=== PATIENT | female | born 1990 | race Caucasian/White ===

== ENCOUNTER 2021-05-24 01:34 | Outpatient (CLI) | payer MEDICARE, MEDICAID, SELFPAY ==
[2021-05-24 15:20] LABS: Abs Immature Grans 0.04 10^3/uL (0.0-0.06); Absolute Basophil Count 0.06 10^3/uL (0.0-0.2); Absolute Eosinophil Count 0.22 10^3/uL (0.0-0.7); Absolute Monocyte Count 0.77 10^3/uL (0.1-0.8); Basophils % 0.5; Eosinophils % 1.8; HGB 12.9 g/dL (11.2-15.7); Immature Grans % 0.3; Lymphocytes % 26.4; MCH 29.9 pg (27.0-33.0); MCHC 33.1 % (32.0-36.0); MCV 90.3 fL (80-95); MPV 9.5 fL (8.0-11.0); Monocytes % 6.4; Neutrophils % 64.6; Nucleated RBC 0 %; Platelet Count 307 10^3/uL (130-400); RBC 4.32 10^6/uL (3.93-5.22); RDW 12.5 % (11.7-14.6); RDW-SD 41.6 fL
[2021-05-24 15:23] LABS: Absolute Lymphocyte Count 3.19 10^3/uL (1.2-3.4); Absolute Neutrophil Count 7.82 10^3/uL (1.2-6.7)
[2021-05-24 16:26] LABS: TSH (W/Ref FT4) 1.59 uIU/mL (0.36-3.74)
[2021-05-29 11:27] LABS: Hepatitis B Surface Ag Negative (Negative)
[2021-05-29 11:47] LABS: Varicella IgG Antibody Positive (See Note)
[2021-05-29 11:49] LABS: Rubella IgG Ab (UVM) Negative (See Note)
[2021-05-29 12:07] LABS: HIV-1/2 Ag & Ab Screen Negative (Negative)
[2021-05-29 12:13] LABS: Hepatitis C Ab w Rflx HCV PCR Negative (Negative)
[2021-05-29 13:03] LABS: Syphilis Total Ab w/Reflex Nonreactive (Nonreactive)
== END 2021-05-24 01:35 | disposition home or self-care (01) ==
LOC: LBO 01:34
PROVIDERS: PCP Nurse Practitioner Adult Health; Visit Provider Advanced Practice Midwife
DX: O99.341 Other mental disorders complicating pregnancy, first trimester; F31.9 Bipolar disorder, unspecified; Z11.4 Encounter for screening for human immunodeficiency virus [HIV]; Z11.59 Encounter for screening for other viral diseases; Z01.84 Encounter for antibody response examination; Z3A.11 11 weeks gestation of pregnancy
CPT/HCPCS: 36415; 86787; 86803; 86850; 86900; 86901; 87340; 87389; 84443; 85025; 86762; 86780

== ENCOUNTER 2021-05-24 16:46 | Outpatient (REF) | payer MEDICARE, MEDICAID, SELFPAY ==
[2021-05-24 17:49] LABS: *AMPHETAMINES SCREEN URINE Negative (Negative); *BARBITURATES SCREEN URINE Negative (Negative); *BENZODIAZEPINES SCREEN URINE Negative (Negative); Cannabinoids THC Negative (Negative); Cocaine Screen,Urine Negative (Negative); METHADONE URINE SCREEN Negative (Negative); OPIATES URINE SCREEN Negative (Negative)
[2021-05-24 17:54] LABS: Tricyclic Antidepressants Negative (Negative)
[2021-05-31 06:18] LABS: Buprenorphine Negative ng/mL (Cutoff: 5.0)
== END 2021-05-24 16:47 | disposition home or self-care (01) ==
LOC: LBN 16:46
PROVIDERS: PCP Nurse Practitioner Adult Health; Visit Provider Advanced Practice Midwife
DX: O99.321 Drug use complicating pregnancy, first trimester; R30.0 Dysuria; F19.20 Other psychoactive substance dependence, uncomplicated
CPT/HCPCS: 80307; 87086

== ENCOUNTER 2021-06-20 16:12 | Outpatient (REF) | payer MEDICARE, MEDICAID, SELFPAY ==
[2021-06-24 15:23] LABS: Chlamydia Result Negative (Negative); GC Result Negative (Negative)
== END 2021-06-20 16:13 | disposition home or self-care (01) ==
LOC: LBN 16:12
PROVIDERS: PCP Nurse Practitioner Adult Health; Visit Provider Advanced Practice Midwife
DX: Z34.92 Encounter for supervision of normal pregnancy, unspecified, second trimester (principal); Z11.3 Encounter for screening for infections with a predominantly sexual mode of transmission; Z3A.15 15 weeks gestation of pregnancy
CPT/HCPCS: 87491; 87591

== ENCOUNTER 2021-07-09 03:39 | Outpatient (CLI) | payer MEDICARE, MEDICAID, SELFPAY ==
[2021-07-12 10:47] LABS: AFP 54.4 ng/mL; Calculated age at EDD 29 years; GA used in risk estimate Dates estimate; INHIBIN 178 pg/mL; IVF Pregnancy No; Initial or repeat testing Initial testing; Insulin dependent diabetes No; Maternal Weight 187 lbs; Number of Fetuses 1; Physician Phone Number 802-748-7300; Prev Down(T21)/Trisomy Pregnan No; Prev Pregnancy w/NTD No; RECOMMENDED FOLLOW UP None.; Results Summary Normal risk; hCG, TOTAL 10.1 IU/mL; uE3 1.52 ng/mL
== END 2021-07-09 03:40 | disposition home or self-care (01) ==
LOC: LBO 03:39
PROVIDERS: PCP Nurse Practitioner Adult Health; Visit Provider Advanced Practice Midwife
DX: Z34.92 Encounter for supervision of normal pregnancy, unspecified, second trimester (principal); Z36.89 Encounter for other specified antenatal screening; Z3A.18 18 weeks gestation of pregnancy
CPT/HCPCS: 36415; 81511

== ENCOUNTER 2021-09-03 17:15 | Outpatient (REF) | payer MEDICARE, MEDICAID, SELFPAY | END 2021-09-03 17:16 | disposition home or self-care (01) | LOC: LBN 17:15 | PROVIDERS: PCP Nurse Practitioner Adult Health; Visit Provider Advanced Practice Midwife | DX: R30.0 Dysuria (principal) | CPT/HCPCS: 87086 ==

== ENCOUNTER 2021-09-26 11:43 | Emergency (ER) | payer MEDICARE, MEDICAID, SELFPAY ==
[2021-09-26 11:53] VITALS: BP 134/67; PULSE 93; RESP 16; TEMP 37.4; O2SAT 97
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
[2021-09-26 12:20] LABS: Source Nasal/Nares
[2021-09-26 13:15] LABS: COVID-19 PCR Negative (Negative)
[2021-09-26] MEDS: Acetaminophen 325 MG TAB 650 MG PO (13:21)
[2021-09-26] MEDS: Amoxicillin 875/Clav. 125 TAB PO (13:21)
[2021-09-26] MEDS: Dexamethasone 10 MG/ML VIAL PO (13:21)
== END 2021-09-26 13:40 | disposition short-term general hospital (02) ==
PROVIDERS: Emergency Provider Physician Assistant; PCP Nurse Practitioner Adult Health
DX: O26.893 Other specified pregnancy related conditions, third trimester (principal); J01.80 Other acute sinusitis; O36.8190 Decreased fetal movements, unspecified trimester, not applicable or unspecified; Z3A.29 29 weeks gestation of pregnancy
CPT/HCPCS: 87449; 87635; 87880; 99283; 59025; 87081; J1100

== ENCOUNTER 2021-09-26 13:21 | Outpatient (CLI) | payer MEDICARE, MEDICAID, SELFPAY ==
[2021-09-26 13:37] VITALS: BP 110/56; PULSE 76; TEMP 36.9
[2021-09-26 14:30] VITALS: BP 110/56; PULSE 76
--- NOTE | 2021-09-26 14:38 | W.OBNST ---
Date of service: 09/26/21 Time of Service: 14:30 NST Evaluation Reason for NST Reasons for Nonstress Test: DECREASED MOVEMENT Gestational Age Gestational Age in Weeks and Days: 81 Weeks and 5Days Test and Monitor Explained Test/Monitor Explained: Test Explained, Monitor Explained and Patient Verbalized Understanding Vital Signs Blood Pressure: 110/56 Pulse: 76 Temperature: 98.4 F NST Information Date on Monitor: 09/26/21 Time on Monitor: 13:49 Date off Monitor: 09/26/21 Time off Monitor: 14:28 Total Time on Monitor: 39 NST Interventions: PO Hydration NST Evaluation Patient States Movement: Present FHR Baseline: 140 Variability: Moderate 6-25 bpm Accelerations: 15x15 Decelerations: None NST Results: Reactive Note NST Note Note: NST is reactive and reassuring. Patient was seen in ED for upper respiratory illness without fever, had flu and covid testing done and was negative and cleared by ED physician but had reported some decrease in movement. NST shows movement and is reassuring. Patient will keep her next visit as scheduled. CARMEN NST Reviewed and Verified by: Chandrika Willson
[2021-09-26 14:40] VITALS: BP 110/56; PULSE 76; TEMP 36.9
[2021-09-26 15:11] VITALS: BP 110/56; PULSE 76; TEMP 36.9
--- NOTE | 2021-09-26 15:11 | W.OBNST ---
Date of service: 09/26/21 Time of Service: 15:11 NST Evaluation Reason for NST Reasons for Nonstress Test: DECREASED MOVEMENT Gestational Age Gestational Age in Weeks and Days: 81 Weeks and 5Days Test and Monitor Explained Test/Monitor Explained: Test Explained, Monitor Explained and Patient Verbalized Understanding Vital Signs Blood Pressure: 110/56 Pulse: 76 Temperature: 98.4 F NST Information Date on Monitor: 09/26/21 Time on Monitor: 13:49 Date off Monitor: 09/26/21 Time off Monitor: 14:28 Total Time on Monitor: 39 NST Interventions: PO Hydration NST Evaluation Patient States Movement: Present FHR Baseline: 140 Variability: Moderate 6-25 bpm Accelerations: 15x15 Decelerations: None NST Results: Reactive Note NST Note NST Reviewed and Verified by: Mere Castanon
[2021-09-27 08:33] VITALS: BP 120/66; PULSE 80
[2021-09-27 13:54] VITALS: BP 170/96; PULSE 75
[2021-09-27 14:13] VITALS: BP 149/109; PULSE 82
[2021-09-27 16:29] VITALS: BP 135/81; PULSE 80
== END 2021-09-26 15:00 | disposition home or self-care (01) ==
LOC: BCD 13:22 → OBS 13:48
PROVIDERS: PCP Nurse Practitioner Adult Health; Visit Provider Advanced Practice Midwife
DX: O36.8130 Decreased fetal movements, third trimester, not applicable or unspecified (principal); Z3A.31 31 weeks gestation of pregnancy
CPT/HCPCS: 59025

== ENCOUNTER 2021-10-02 02:32 | Outpatient (CLI) | payer MEDICARE, MEDICAID, SELFPAY ==
[2021-10-02 10:33] LABS: HCT 39.5 % (36.0-46.0); HGB 13.1 g/dL (11.2-15.7); MCH 30.4 pg (27.0-33.0); MCHC 33.2 % (32.0-36.0); MCV 91.6 fL (80-95); MPV 9.4 fL (8.0-11.0); Platelet Count 294 10^3/uL (130-400); RBC 4.31 10^6/uL (3.93-5.22); RDW 12.5 % (11.7-14.6); RDW-SD 41.8 fL; WBC 15.98 10^3/uL (4.4-10.8)
[2021-10-02 10:49] LABS: Glucose,1 Hr (Glucola) 97 mg/dL (80-140)
== END 2021-10-02 02:33 | disposition home or self-care (01) ==
LOC: LBO 02:32
PROVIDERS: PCP Nurse Practitioner Adult Health; Visit Provider Advanced Practice Midwife
DX: Z34.93 Encounter for supervision of normal pregnancy, unspecified, third trimester (principal)
CPT/HCPCS: 36415; 82950; 85027; 86850; 90384

== ENCOUNTER 2021-10-03 14:51 | Outpatient (REF) | payer MEDICARE, MEDICAID, SELFPAY ==
[2021-10-04 02:08] LABS: *AMPHETAMINES SCREEN URINE Negative (Negative); *BARBITURATES SCREEN URINE Negative (Negative); *BENZODIAZEPINES SCREEN URINE Negative (Negative); Cannabinoids THC Negative (Negative); Cocaine Screen,Urine Negative (Negative); METHADONE URINE SCREEN Negative (Negative); OPIATES URINE SCREEN Negative (Negative); Tricyclic Antidepressants Negative (Negative)
[2021-10-09 14:17] LABS: Buprenorphine Negative ng/mL (Cutoff: 5.0)
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
== END 2021-10-03 14:52 | disposition home or self-care (01) ==
LOC: NCHCN 14:51
PROVIDERS: PCP Nurse Practitioner Adult Health; Visit Provider Advanced Practice Midwife
DX: O15.03 Eclampsia complicating pregnancy, third trimester
CPT/HCPCS: 80307

== ENCOUNTER 2021-10-15 00:42 | Outpatient (CLI) | payer MEDICARE, MEDICAID, SELFPAY ==
--- NOTE | 2021-10-15 07:15 | DI.US_ITS ---
Exam(s) US OB RAS WEIGHT EXAM: US OB RAS WEIGHT CLINICAL HISTORY: ,high risk,medication exposure,O09.891 TECHNIQUE: Ultrasound performed using standard protocol. COMPARISON: No exams were available for comparison FINDINGS: Ob ultrasound was performed utilizing 3rd trimester protocol. biometry is consistent with a ge stational age of 32 weeks 2 days and EDC of December 08. The estimated weight is 1911 grams which is at the 35th percentile for predicted gestational ag e. Placenta is posterior with no placenta previa. There is normal quantity of amniotic fluid and the AF I is 19. Fetus is in breech presentation. heart rate is 141 BPM. IMPRESSION: DATA REPOSITORY:
== END 2021-10-15 01:02 ==
PROVIDERS: PCP Nurse Practitioner Adult Health; Visit Provider Advanced Practice Midwife
DX: O09.893 Supervision of other high risk pregnancies, third trimester (principal)
CPT/HCPCS: 76816

== ENCOUNTER 2021-10-28 19:23 | Outpatient (REF) | payer MEDICARE, MEDICAID, SELFPAY ==
[2021-10-28 19:06] LABS: *AMPHETAMINES SCREEN URINE Negative (Negative); *BARBITURATES SCREEN URINE Negative (Negative); *BENZODIAZEPINES SCREEN URINE Negative (Negative); Cannabinoids THC Positive (Negative); Cocaine Screen,Urine Negative (Negative); METHADONE URINE SCREEN Negative (Negative); OPIATES URINE SCREEN Negative (Negative)
[2021-10-28 19:24] LABS: Tricyclic Antidepressants Negative (Negative)
[2021-11-05 16:40] LABS: Buprenorphine Negative ng/mL (Cutoff: 5.0)
== END 2021-10-28 19:24 | disposition home or self-care (01) ==
LOC: LBN 19:23
PROVIDERS: PCP Nurse Practitioner Adult Health; Visit Provider Advanced Practice Midwife
DX: F12.90 Cannabis use, unspecified, uncomplicated (principal); R56.9 Unspecified convulsions; Z34.93 Encounter for supervision of normal pregnancy, unspecified, third trimester
CPT/HCPCS: 80307

== ENCOUNTER 2021-11-08 16:32 | Outpatient (REF) | payer MEDICARE, MEDICAID, SELFPAY ==
[2021-11-08 16:58] LABS: *AMPHETAMINES SCREEN URINE Negative (Negative); *BARBITURATES SCREEN URINE Negative (Negative); *BENZODIAZEPINES SCREEN URINE Negative (Negative); Cannabinoids THC Negative (Negative); Cocaine Screen,Urine Negative (Negative); METHADONE URINE SCREEN Negative (Negative); OPIATES URINE SCREEN Negative (Negative)
[2021-11-08 16:59] LABS: Tricyclic Antidepressants Negative (Negative)
[2021-11-15 12:21] LABS: Buprenorphine Negative ng/mL (Cutoff: 5.0); Norbuprenorphine Negative ng/mL (Cutoff: 2.5)
== END 2021-11-08 16:33 | disposition home or self-care (01) ==
LOC: LBN 16:32
PROVIDERS: PCP Nurse Practitioner Adult Health; Visit Provider Advanced Practice Midwife
DX: R56.9 Unspecified convulsions (principal); Z34.93 Encounter for supervision of normal pregnancy, unspecified, third trimester
CPT/HCPCS: 80307; 87081

== ENCOUNTER 2021-11-11 09:13 | Outpatient (CLI) | payer MEDICARE, MEDICAID, SELFPAY ==
--- NOTE | 2021-11-11 08:45 | DI.US_ITS ---
Exam(s) US OB RAS WEIGHT EXAM: US OB RAS WEIGHT CLINICAL HISTORY: interval growth, size of fetus inconsistent with date, O26.843. TECHNIQUE: Transabdominal obstetrical ultrasound performed. COMPARISON: US US OB RAS WEIGHT from 10/15/2021 US US OB RAS WEIGHT from 10/15/2021 FINDINGS:: Number of fetuses: One. position: Vertex. Placental location: Posterior. No evidence of previa. BIOMETRIC DATA: BPD: 85mm = 34+1 weeks HC: 315mm = 35+2 weeks AC: 299mm = 33+ 6 weeks FL: 68 mm = 34+ 6 weeks EFW: 2403 Gms = 14 % Composite Age: 34+4 weeks EDC: 19 December 2021 Heart Rate: 147BPM Amniotic fluid index: 13. 7 cm. Amount of fluid is within normal limits. IMPRESSION: size and weight is at the lower range of normal.. DATA REPOSITORY:
== END 2021-11-11 09:33 ==
PROVIDERS: PCP Nurse Practitioner Adult Health; Visit Provider Advanced Practice Midwife
DX: O26.843 Uterine size-date discrepancy, third trimester (principal); Z3A.34 34 weeks gestation of pregnancy
CPT/HCPCS: 76816

== ENCOUNTER 2021-12-09 02:48 | Outpatient (CLI) | payer MEDICARE, MEDICAID, SELFPAY ==
[2021-12-09 03:30] VITALS: BP 137/78; PULSE 77; RESP 18; TEMP 36.7
[2021-12-09 03:35] VITALS: BP 137/78; PULSE 77; RESP 18; TEMP 36.8
[2021-12-09 03:54] VITALS: BP 137/78; PULSE 77; TEMP 36.8
--- NOTE | 2021-12-09 03:59 | W.OBNST ---
Date of service: 12/09/21 Time of Service: 03:59 NST Evaluation Reason for NST Reasons for Nonstress Test: OTHER, SEE COMMENT Reason for NST Other: lower abdominal pain Gestational Age Gestational Age in Weeks and Days: 40 Weeks and 1Days Test and Monitor Explained Test/Monitor Explained: Test Explained, Monitor Explained and Patient Verbalized Understanding Vital Signs Blood Pressure: 137/78 Pulse: 77 Temperature: 98.2 F NST Information Date on Monitor: 12/09/21 Time on Monitor: 03:17 Date off Monitor: 12/09/21 Time off Monitor: 03:48 Total Time on Monitor: 31 NST Interventions: PO Hydration NST Evaluation Patient States Movement: Present FHR Baseline: 130 Variability: Moderate 6-25 bpm Accelerations: 15x15 Decelerations: None NST Results: Reactive Note NST Note Note: Jenni presents for complaint of lower mid abdominal pain that is intermittent. Pain began at midnight. Denies LOF or show. Baby is active and pain appears to be most intense when baby is moving. Abdomen is soft and non tender to palpation. NST is reactive and CAT I reassuring. No contractions on toco reading or palpated. VE done /VTX -2 cervix is medium consistency and posterior. Patient is discharged to home and will return to office at 1400 today as scheduled for repeat assessment. She declines continued observation on Center. CARMEN NST Reviewed and Verified by: Chandrika Willson
[2021-12-09 04:01] VITALS: BP 137/78; PULSE 77; TEMP 36.8
[2021-12-09 13:09] VITALS: BP 140/74; PULSE 64
== END 2021-12-09 04:01 | disposition home or self-care (01) ==
LOC: BCD 14:50 → OBS 14:50
PROVIDERS: PCP Nurse Practitioner Adult Health; Visit Provider Advanced Practice Midwife
DX: O26.893 Other specified pregnancy related conditions, third trimester (principal); R10.2 Pelvic and perineal pain; Z3A.40 40 weeks gestation of pregnancy
CPT/HCPCS: 59025; J2001; J2250; J2405; J2704; J3010

== ENCOUNTER 2021-12-09 13:10 | Inpatient (IN) | payer MEDICARE, MEDICAID, SELFPAY ==
[2021-12-09] VITALS (44 sets, daily range): BP systolic 107–140; BP diastolic 50–92; PULSE 49–90; RESP 15–18; TEMP 36–36.8; O2SAT 90–100; BMI 30.4
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
[2021-12-09] MEDS: Lactated Ringers 1,000 ML 1000 ML IV (13:40)
--- NOTE | 2021-12-09 13:57 | W.PM.OBNL1 ---
Date of service: 12/09/21 Time of Service: 13:57 Informed Consent Informed Consent: Regional Anesthesia and Other (labor progression, pain management options.) Assessment and Plan Assessment and plan (1) Active labor at term: Status: Acute Assessment and plan: 1. will do full admission as nitrous is not helping patient manage her pain and epidural is required 2. expect NVD Objective Temp Pulse Resp BP 98.2 F 64 18 140/74 12/09/21 13:48 12/09/21 13:48 12/09/21 13:48 12/09/21 13:48 Vital Signs Reviewed: Yes Subjective Interval history since last seen: not enough relief with nitrous use, will admit and move toward epidural for pain management. Anesthesia is aware. KH Interventions Pain Management Interventions: Epidural and Nitrous Oxide , nitrous oxide use reviewed, patient admits to minimal relief. Requesting epidural. CARMEN .
--- NOTE | 2021-12-09 14:24 | W.ANESPRE ---
General Info Date of Service Date Performed: 12/09/21 Height: 5 ft 11 in Weight: 98.883 kg Body Mass Index (BMI): 30.4 Meds Allergies and Home Medications Allergies Allergy/AdvReac Type Severity Reaction Status Date / Time lamotrigine [From Lamictal] Allergy Severe full body Verified 12/09/21 13:18 rash latex Allergy Skin Rash Verified 12/09/21 13:18 seasonal Allergy Mild Uncoded 12/09/21 13:18 Home Medication Medication Instructions Recorded vitamins with calcium 1 tab PO DAILY #90 tab 05/03/21 no.72-iron 29 mg-folic acid 1 mg tablet bisacodyl 5 mg tablet,delayed 5 mg PO ONCE PRN 05/24/21 release secukinumab 150 mg/mL subcutaneous 150 mg SUBCUT .once/month ml 05/24/21 pen injector Current Visit Medications: Current Medications Generic Name Dose Route Start Last Admin Trade Name Freq PRN Reason Stop Dose Admin Sodium Chloride 500 mls @ 0 mls/hr 12/09/21 13:55 Saline 500ml Bag IV PRN PRN As Directed Ringer's Solution 1,000 mls @ 150 mls/hr 12/09/21 14:00 IV INFUSION DENAE IV Miscellaneous Supplies 1 each 12/09/21 14:00 Iv Access IV DIRECTED DENAE Sodium Chloride 0 ml 12/09/21 13:55 Normal Saline Flush 10 Ml Syr IVP PRN PRN PFSH Active Problems Active Problems: Problem Status Onset Code Active labor at term Prolonged latent phase of labor O63.0 Size of fetus inconsistent with dates in third trimester O26.843 34 weeks gestation of Z3A.34 Rh negative status during O26.899, Z67.91 Acute sinusitis J01.90 Decreased movement O36.8190 Third trimester Z34.93 Status post craniectomy Z98.890 History of pyelonephritis Z87.448 Seizures R56.9 Borderline personality disorder F60.3 Personal history of traumatic brain injury Z87.820 Posttraumatic stress disorder F43.10 Bipolar affective disorder F31.9 Psoriasis L40.9 Asthma J45.909 TMJ (temporomandibular joint disorder) M26.609 Migraine headache G43.909 Marijuana use F12.90 Dysuria R30.0 Medication exposure during first trimester of O09.891 Nicotine dependence F17.200 Rubella non-immune status, antepartum O99.891, Z28.3 History of cranioplasty Z98.890 Constipation K59.00 COOKIE positive R76.8 Z34.90 Tobacco Smoking/Tobacco Use Status: Current every day Alcohol Alcohol Intake: never Substance Use Substance use type: does not use Prental History History 2 Para 0 Hx # Term Pregnancies 0 Multiple births 0 Hx # Pregnancies 0 Ectopic pregnancies 0 AB induced 0 Hx Number of Living Children 0 AB spontaneous 1 Vital Signs and Lab Results Vital Signs Most Recent Vital Signs in EMR: Most Recent Vital Signs Temp Pulse Resp BP 36.8 C 64 18 140/74 12/09/21 13:48 12/09/21 13:48 12/09/21 13:48 12/09/21 13:48 Lab Results Result Diagrams: 12/09/21 13:55 Blood Type / Crossmatch: No Data to Display Complete Blood Count: No Data to Display Complete Metabolic Panel: No Data to Display Liver Function Panel: No Data to Display Coagulation Panel: No Data to Display Cardiac Panel: No Data to Display Arterial Blood Gas: No Data to Display Venous Blood Gas: No Data to Display Pancreas Panel: No Data to Display Thyroid Panel: No Data to Display Infectious Disease: No Data to Display Blood Cultures: No Data to Display Toxicology Panel: No Data to Display Panel: No Data to Display Anesthesia Assessment and Plan Anesthesia History Personal History: No History of Anesthesia Complications Family History: No Family History of Anesthesia Complications Exercise Tolerance Exercise Tolerance: Metabolic Equivalents>4 Pertinent Negatives Pertinent Negatives: No Symptoms of GERD, No Major Cardiovascular Symptoms or Complaints and No Major Pulmonary Symptoms or Complaints Cardiac & Pulmonary Exam Cardiac Exam: Normal S1/S2 Heart Sounds Pulmonary Exam: Clear Bilateral Breath Sounds Implantable Cardiac Device Does patient have a Pacemaker or an ICD?: No Airway Exam Known Difficult Airway: No Mallampati Class: 1 Mouth Opening: Normal (> 3cm) Thyromental Distance: Greater than 3 cm Neck Range of Motion: Full ROM Neck Circumference: Normal Teeth Condition: Normal Dentition ASA Classification ASA Score: ASA 2 Emergency Case?: No NPO Status NPO Status: Full Stomach Status Status: Confirmed Anesthesia Plan Resuscitation Status: Full Code Anesthesia Technique: Epidural Anesthesia Airway Planned: Natural Airway Monitors Used: Standard Monitors Preoperative Comments:: Previous tracheostomy, no history of GETA since TBI. Prior anesthesia consult reviewed. Current smoker.
[2021-12-09 14:32] LABS: HCT 43.4 % (36.0-46.0); HGB 14.4 g/dL (11.2-15.7); MCH 30.8 pg (27.0-33.0); MCHC 33.2 % (32.0-36.0); MCV 92.9 fL (80-95); Platelet Count 214 10^3/uL (130-400); RBC 4.67 10^6/uL (3.93-5.22); RDW 12.9 % (11.7-14.6); RDW-SD 43.6 fL; WBC 15.78 10^3/uL (4.4-10.8)
[2021-12-09] MEDS: fentaNYL 100 MCG/2 ML VIAL (15:01)
--- NOTE | 2021-12-09 15:04 | W.ANESPROC ---
Intrathecal Analgesia Date Performed: 12/09/21 Procedure Time: 14:40 Requesting Provider: Chandrika Willson Procedure Location: Obstetrics Reason Performed: Labor Intrathecal Analgesia Standard Monitors Applied: Blood Pressure, SpO2 and See EMR for corresponding vital signs Patient Position: Sitting Timeout Performed: Yes Sedation Given (Indicate Dose Given): No Sedation given Patient Mental Status: Awake Sterility: Hand Hygiene, Surgical Cap, Surgical Mask, Sterile Gloves, Sterile Drape/Sheet, N95 Mask and Chlorhexidine Placement Site: L3-L4 Interspace Spinal Needle Type: Sprotte 25 Gauge Needle Length: 3.5 Inch Spinal Procedure: Site Prepped, Sterile Drape Placed, 1% Lidocaine to skin and subcutaneous tissue with 25G needle, Introducer Needle Used, Spinal Needle Placed, Negative Heme, Positive CSF Flow and Medication Injected Paresthesia: None Spinal Local Anesthetic (Indicate Dose Given): Bupivacaine 0.25% PF (ml) Dose:: 1mL Additives (Indicate Dose Given): Fentanyl PF Dose:: 20mcg and Duramorph PF Dose:: 150mcg Ultrasound: Not Used Number of Attempts (See previous attempts in note section): 2 Procedure Tolerated: No Complications Procedure Outcome: Successful Procedure Comment: Plan for epidural anesthesia, but decision made to transition plan to intrathecal given patient progressing quickly and difficulty sitting still. Patient utilized nitrous oxide during procedure and tolerated well. Performed By: Vera Santana
--- NOTE | 2021-12-09 15:37 | W.PM.OBNL1 ---
Date of service: 12/09/21 Time of Service: 15:37 Pelvic Exam Dilation: 9 Effacement (%): 100 station: +2 Position: PHAM Consistency: soft Contractions Monitor Mode: External Contraction Frequency(min): q2-4 Intensity: Moderate/Strong Fetus A Monitor: External (US) Heart Rate Baseline: 140 Presentation: Cephalic Variability: Moderate (6-25 BPM) Categories: Category I Accelerations: 15 X 15 Decelerations: Early Amniotic Membrane Status: Ruptured Rupture Method: Artifical Amount: scant to none Date of Membrane Rupture: 12/09/21 Time of Membrane Rupture: 15:24 Assessment Note: AROM for FSE placement Assessment and Plan Assessment and plan (1) Spontaneous onset of labor: Status: Acute Assessment and plan: A: 31 yo @ 40 wks Active labor, GBS neg, Admission COVID swab pending Intrathecal anesthesia, working well P: Anticipate this afternoon Objective Vital Signs Reviewed: Yes Objective Narrative Objective Narrative: Pt is happy with intrathecal, has good movement in her legs Informed consent reviewed for AROM and FSE placement EFM remains cat 1 after FSE applied Unknown fluid color as there was little to no fluid produced with AROM Normotensive, afebrile Subjective Interval history since last seen: Pt states she has received excellent pain relief after intrathecal was done. Procedure Procedures: Scalp Electrode Placement , indication for electrode: improved FHT tracing while intrathecal in effect
[2021-12-09 15:40] LABS: Source Nasal/Nares
[2021-12-09] MEDS: Lactated Ringers 1,000 ML 150 ML IV (16:00)
[2021-12-09 16:09] LABS: COVID-19 PCR POSITIVE (Negative)
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
--- NOTE | 2021-12-09 17:46 | OBVDS_ITS ---
Date of service: 12/09/21 Time of Service: 17:46 OB Labor/ Delivery Information Baby A Delivery Delivery Method: Spontaneaous Presentation: Cephalic Cephalic Position: Vertex Vertex Position: Left Occipital Anterior Breech Position: N/A Cord Description-Baby A: 3 Vessels and Nuchal Cord (loose, reduced over shoulder and baby delivered through loop, nuchal hand noted) Amniotic Fluid: Clear Estimated Blood Loss: 200 Delivery Outcome: Liveborn Transferred: Remains with Mother Note: After intrathecal, pt progressed rapidly to 9 cm, AROM for scant fluid done to place FSE for improved FHT detection while pt changed positions. Anterior lip manually reduced with vtx PHAM at +2 station, second stage huddle completed. At that time, lab result of COVID swab+ was communicated to staff. All staff had been masked, and full PPE was then donned by RN's and CNM, supervisor hard candy called to unit to help coordinate phone calls and equipment needs. Pt pushed very strongly and achieved over intact perineum of a vigorous female , nuchal cord and nuchal hand were noted at , shoulders came easily, infant immediately to mother's arms. Pt was assisted to assure her mask was on correctly while holding the baby and she performed hand hygiene.Cord blood was collected, pitocin IV bolus was begun, two stitches were placed to approximate edges of right labial laceration, no other lacerations noted and perineum is intact, no vaginal bleeding. At 30 minutes after delivery, placenta had not loosened or delivered, no vaginal bleeding, pt hemostatically stable. Dr. To was paged to the room for assistance with placenta, after assessment pt taken to OR for retained placenta. See MD notes. Prior to going to the OR pt was able to breastfeed her infant, appropriate family bonding was observed, apgars 8/9, weight 2720 gms Providers Nurse Factory Focus Technician: Agatha Castanon Vocational Auto Body Instructor: Maye To Nurse: Vicky Holliday Nurse: Nannette Reese Labor/Delivery Information Number of Babies in Womb: 1 Steroids Given: None Reason Steroids Not Administered: N/A Group Beta Strep: Negative Antibiotics Administered: No Rubella Status: Immune Blood Type: A- Varicella Immunity: Nonimmune Maternal Complications: Other (retained placenta) Shoulder Dystocia: No Stages of Labor Onset of Labor Date: 12/08/21 Onset of Labor Time: 17:00 Complete Dilatation Date: 12/09/21 Complete Dilatation Time: 16:05 Labor - Stage 1 Duration: 24 hours and 0 minutes ROM Baby A: 12/09/21 ROM Baby A: 15:24 Infant Delivery Date-Baby A: 12/09/21 Infant Delivery Time-Baby A: 16:27 Labor Stage 2 Duration: 22 minutes Total Length of Labor-Baby A: 23 hours and 27 minutes Placenta Status: Retained (delivered in the OR by Dr. To) Baby A Infant Gender: Female Gestational Status: Term (39-41.6 wks) Gestational Age in Weeks/Days: 40 Weeks and 1 Days weight: 5 lb 15.945 oz Weight Comment: 2720 gms Score-1 Minute Interval(Baby A) Heart Rate-1 minute: 100 BPM or Greater Respiratory Effort- 1 minute: Spontaneous/Strong Cry Muscle Tone-1 minute: Active Movement Reflex Response-1 minute: Minimal Response Color-1 minute: Bluish Hands or Feet Total Score-1 minute: 8 Score-5 Minute Interval(Baby A) Heart Rate- 5 minute: 100 BPM or Greater Respiratory Effort-5 minute: Spontaneous/Strong Cry Muscle Tone-5 minute: Active Movement Reflex Response-5 minute: Prompt Response Color-5 minute: Bluish Hands or Feet Total Score- 5 minute: 9 Procedure Procedures: Cord Blood Collection/ Retained Placenta Extraction , to OR for placenta extraction at 90 minutes , vital signs stable, no increased vaginal bleeding
[2021-12-09] MEDS: ceFAZolin 2 GM/50 ML BAG IVPB (18:13)
--- NOTE | 2021-12-09 18:15 | PLAC_PTH ---
PATIENT: Jenni Wick LOC: OBS U#:[id number] AGE/SX: 31/F ROOM: OBS.301 RE12/09/[address]: Chandrika Willson CNM : 1990 BED: A DIS: 12/11/2021 SPEC #: [id number] RECD: 12/10/21 10:43 STATUS: SERJIO REQ #: [id number] JULIÁN: 12/09/21 18:[address]: Chandrika Willson DEPT: Surgical Specimen RECD BY: Navya Richardson ENTERED: 12/10/21 10:46 SP TYPE: PLAC OTHR DR: Lachelle Ferrer Tissues: 1 - PLACENTA (3RD TRIMESTER) Procedures: GROSS AND MICRO LEVEL 5 Comments: [id number]
[2021-12-09] MEDS: Bupivacaine 0.25% Pres-Free 30 ML VIAL (18:30)
[2021-12-09] MEDS: Oxytocin/Normal Saline 30 UNIT/500 ML BAG 167 UNITS IV (20:13)
[2021-12-10 02:21] VITALS: BP 144/61; PULSE 62; RESP 16; TEMP 36.8; O2SAT 97
[2021-12-10 07:18] LABS: HCT 40.2 % (36.0-46.0); MCH 30.3 pg (27.0-33.0); MCHC 32.3 % (32.0-36.0); MCV 93.7 fL (80-95); MPV 10.2 fL (8.0-11.0); Platelet Count 197 10^3/uL (130-400); RBC 4.29 10^6/uL (3.93-5.22); RDW 13.1 % (11.7-14.6); RDW-SD 44.4 fL; WBC 13.39 10^3/uL (4.4-10.8)
[2021-12-10] MEDS: Hamamelis Leaf/Glycerin 100 EACH BOX PR (10:00)
[2021-12-10] MEDS: Ibuprofen 600 MG TAB PO ×2 (11:00→19:56)
[2021-12-10] MEDS: Acetaminophen 325 MG TAB 650 MG PO ×2 (11:37→19:55)
--- NOTE | 2021-12-10 12:56 | W.ANESPOSTOP ---
Postoperative Evaluation Date, Time and Location Date Performed: 12/09/21 Time Performed: 19:35 Patient Location: Other (PACU in OR secondary to COVID+) Vital Signs Most Recent Imported Vital Signs: Most Recent Vital Signs Temp Pulse Resp BP Pulse Ox 36.8 C 62 16 144/61 H 97 12/10/21 02:21 12/10/21 02:21 12/10/21 02:21 12/10/21 02:21 12/10/21 02:21 Pain Score Most Recent Pain Score: Most Recent Pain Score Pain Level 0 12/09/21 19:02 Assessment Mental Status: Awake (Alert & Oriented to Patient Baseline) Airway and Respiratory Function: Patent airway with normal (patient baseline) respiratory exam Cardiovascular Function: Hemodynamically Stable Hydration Status: Adequately Hydrated Nausea & Vomiting: No Nausea or Vomiting Pain: Pt. Denies Any Pain Peripheral Nerve Block: Patient did not receive a nerve block
[2021-12-10 13:06] VITALS: BP 119/82; PULSE 101; RESP 16; TEMP 36.7; O2SAT 99
[2021-12-10] MEDS: Dibucaine 1% 28 GM TUBE TP (13:35)
--- NOTE | 2021-12-10 18:01 | W.PM.OBPNV1 ---
Date of service: 12/10/21 Time of Service: 18:01 Assessment and Plan Assessment and plan (1) Term delivered: Status: Acute Assessment and plan: A: Nml PPD#1 S/P operative placental removal, uncomplicated recovery off to a good start Social stressors; anxiety COVID+, asymptomatic yesterday, reports sore throat today COVID isolation in effect, protection procedures in place P: Pt agrees to stay an additional night for support May offer pt medication for anxiety Plans Nexplanon for BCM Will review written instructions tomorrow morning CBC this morning is nml with hgb @ 13 and WBC falling to 13 Will contact home nursing agency for home visits is Rh negative, RhoGam not indicated Will hold varicella vaccination while pt is taking Cosentyx for psoriasis Will continue isolation for COVID infection, monitor for symptoms Plan discharge in AM (2) COVID-19 affecting puerperium: Status: Acute Subjective Subjective Patient comments: Tolerating diet Patient's Mood: Pt happy with her , very proud of herself, feeling great love and attachment to the baby, also having anxiety about and infant care, experiencing conflict with her mother and with her boyfriend, upset and annoyed about having become infected with COVID. [place] baby status: Nursing well and Rooming in feeding status: Exclusively breast feeding Exam Physical Exam Vital signs: Temp Pulse Resp BP Pulse Ox 98.1 F 101 H 16 119/82 99 12/10/21 13:06 12/10/21 13:06 12/10/21 13:06 12/10/21 13:06 12/10/21 13:06 Vital Signs Reviewed: Yes Constitutional Constitutional: no acute distress, obese, cooperative and agitated HEENT Exam HEENT Exam: Normal Neck Exam Neck Exam: Normal Breast Exam Bilateral: Breast Exam: Normal and Soft Nipple Exam: Normal and Uninjured Cardiovascular Exam Cardiovascular Exam: Normal Abdominal Exam Abdomen: Other (soft, nontender) Fundal Exam Fundus: Below Umbilicus and Firm Rectal Exam Rectal Exam: Normal Exam Perineum: Intact Extremities Exam Extremity Exam: Normal Back/Spine/Pelvis Exam Back Exam: Normal Skin Exam Skin Exam: Normal Neurological Exam Neurological Exam: Normal Psychiatric Exam Psychiatric Exam: Normal (In the setting of hx of TBI and psych hx of bipolar/anxiety: demonstrates anxiety and upset interspered with calm, handles baby competently and strong bonding observed, reports feeling overwhlemed at times when receiving advice, states she is proud of her childbirth experience.) Results Hemoglobin/Hematocrit: Hgb 13.0 g/dL (11.2-15.7) 12/10/21 07:05 Hct 40.2 % (36.0-46.0) 12/10/21 07:05 Abnormal Lab Findings: Abnormal Labs 12/09/21 12/09/21 12/10/21 14:15 15:40 07:05 WBC 15.78 H 13.39 H SARS-CoV-2 (PCR) POSITIVE A*
[2021-12-10] MEDS: LORazepam 1 MG TAB PO (18:51)
[2021-12-10] MEDS: Docusate Sodium 100 MG CAP PO (18:51)
[2021-12-10 19:55] VITALS: TEMP 37.3
[2021-12-10 22:18] VITALS: BP 111/65; PULSE 109; TEMP 36.9
--- NOTE | 2021-12-11 01:16 | NUR.NOTE ---
Nursing Note:at Midnight this RN heard Isolette alarming from pts room. Upon entering room Patient found to be in tears with baby skin to skin trying to BF but with poor positioning. Pt reassured, calmed and assisted with verbal reminders how to position baby then assisted physically with positioning baby and obtaining a good latch. Pt seemed happy. Latch was comfortable and encouragement to call for assistance given. Plan to return at 0200 with pain meds and pt encouraged to call with needs.
[2021-12-11] MEDS: Acetaminophen 325 MG TAB 650 MG PO (02:08)
[2021-12-11] MEDS: Ibuprofen 600 MG TAB PO (02:09)
--- NOTE | 2021-12-11 02:19 | NUR.NOTE ---
Nursing Note:Pt had been asked to be awakened for meds, difficult to wake up, baby fussy in isolette. Pt reports sleeping X1 hour. This RN changed baby's diaper then consoled baby and placed back in isolette. Pt encouraged to call with needs.
--- NOTE | 2021-12-11 08:08 | ROE_ITS ---
Date of service: 12/11/21 Time of Service: 08:11 Operative Note Operative Note DATE OF PROCEDURE: 12/09/21 PRE-OP DIAGNOSIS: retained placenta POST-OP DIAGNOSIS: same PROCEDURE: manual extraction of placenta under anesthesia SURGEON: Maye To ANESTHESIA TYPE: General LMA/ETT Refer to Anesthesia Record ESTIMATED BLOOD LOSS: 250 PATHOLOGY: other (placenta sent to path) COMPLICATIONS: None Patient was transported to: PACU Patient's condition: stable Indications: Patient is a 31-year-old G2, P1 female who had a spontaneous labor and underwent a uncomplicated vaginal delivery at 40 weeks 1 day EGA. Viable female was delivered at approximately 4:29 PM and the placenta did not deliver spontaneously despite the usual methods including oxytocin infusion after the cord was cut and gentle cord traction with fundal support. Findings: Exteral cervical os closed around the umbilical cord. Approximately 1cm dilation of external os. Cervix with medium consistency. Unable to determine position of placenta in relation to uterine khan. When it was delivered it was normal in configuration with central cord insertion of 3 vessel cord. The overall dimensions of the maternal disc appear small for gestational age. No evidence of evulsion. Intact maternal surface. Uterine cavity smooth walled. No intracavitary filling defects. Procedure Description: Patient was taken to the operating room where she was placed in the dorsal supine position and general anesthesia was administered without difficulty. 2gms IV Ancef was administered upon arrival in the OR. She was then placed in the dorsal lithotomy position in yellowfin stirrups in a neurologically neutral position. She was then prepped, and draped in the usual sterile fashion. Surgical timeout was performed. Gillett speculum was placed into the vagina and the anterior lip of the cervix was infiltrated with 2 cc of 0.25% Marcaine without epinephrine. A single-tooth tenaculum was then used to grasp and hold the anterior lip of the cervix. A paracervical block was performed with 4 cc of quarter percent Marcaine injected into the 4 and 8:00 paracervical spaces respectively. The tenaculum and bivalved speculum were then removed. The tenaculum site was hemostatic. Anesthesia provider administered 10mcg IV Nitroglycerin once followed by a 2nd dose in one minute. This had the effect of dialating the external os of the cervix enough the the placenta, attatched to the umbilical cord was delivered intact. The delivery of the placenta was followed by a small amount of blood. The uterus was massaged bimanually. Uterine tone was firm. Gillett speculum was reinserted and the cervix carefully examined in a circumferential fashion and a vertical tear in the cervix was then repaired with two interrupted sutures of 2-0 Vicryl. The cervical reapair was noted to be hemostatic. Speculum was removed and the uterus was once again massaged with minimal bleeding in the vagina. Uterus was firm at the completion of the procedure. Pt was placed in the dorsal supine position, awakened and extubated withoug difficulty. She was transported to recovery area. Sponge, laps and needle counts were correct x 2. The uterus was sounded to 10 cm. The cervix was then sequentially dilated to a maximum of 16 Cervantes and a 8 mm curved suction cannula was attached to suction and the level of suction tested. The cannula was inserted into the uterine cavity attached to suction and sequentially all 4 quadrants of the uterine cavity were suction curetted until minimal tissue returned. The suction cannula was then removed a banjo curette was used to perform a gentle curetting of all 4 quadrants of the uterine cavity. Minimal tissue was returned. A final insertion of the suction cannula and suction curetting of all 4 quadrants was performed with minimal tissue returned. All instruments were removed from the vagina tenaculum site was noted to be bleeding. The bleeding did not respond to application with Silver Nitrate. A interupted suture of 2-0 Vicryl was used to achieve hemostatisis. Patient was awakened and transported to recovery area in stable condition. All sponge lap needle counts correct x2
[2021-12-11 10:55] VITALS: BP 119/64; PULSE 72; RESP 16; TEMP 36.6
--- NOTE | 2021-12-11 11:03 | W.PM.OBPNV1 ---
Date of service: 12/11/21 Time of Service: 11:03 Assessment and Plan Assessment and plan (1) Term delivered: Status: Acute Assessment and plan: A: Nml PPD#2 Cared for independently through the night P: Plans Nexplanon for BCM, insertion to be at 2 wk appt Reviewed written instructions which were given to pt No further development of COVID symptoms, pt is afebrile Will contact home nursing agency for home visits Discharge to home today (2) COVID-19 affecting puerperium: Status: Acute Subjective Subjective Patient comments: Tolerating diet and Flatus present [place] baby status: Doing well, Nursing well, Rooming in and Strong Bonding Observed feeding status: Exclusively breast feeding Exam Physical Exam Vital signs: Temp Pulse Resp BP Pulse Ox 97.9 F 72 16 119/64 99 12/11/21 10:55 12/11/21 10:55 12/11/21 10:55 12/11/21 10:55 12/10/21 13:06 Constitutional Constitutional: no acute distress, obese, cooperative and agitated HEENT Exam HEENT Exam: Normal Neck Exam Neck Exam: Normal Breast Exam Bilateral: Breast Exam: Normal and Soft Cardiovascular Exam Cardiovascular Exam: Normal Abdominal Exam Abdomen: Other (soft, nontender) Fundal Exam Fundus: Below Umbilicus and Firm Rectal Exam Rectal Exam: Normal Exam Perineum: Intact Extremities Exam Extremity Exam: Normal Back/Spine/Pelvis Exam Back Exam: Normal Skin Exam Skin Exam: Normal Neurological Exam Neurological Exam: Normal Psychiatric Exam Psychiatric Exam: Normal (Had a good night last night, roomed in with baby, did not have any other support people present through the night. Was able care for her , breastfed successfully.) Hemorrrhage Note IV Site Left Hand: IV Catheter Gauge: 18 Left Antecubital: IV Catheter Gauge: 18
--- NOTE | 2021-12-11 11:10 | OBPPV_ITS ---
Date of service: 12/11/21 Time of Service: 11:10 Assessment and Plan Assessment and plan (1) Retained placenta or amniotic membrane after delivery without hemorrhage: Status: Acute Assessment and plan: Satisfactory recovery from manual extraction of placent under anesthesia. Will await final path report on placenta and will notify CNM of results. Pt given customary discharge instructions and recommended pelvic rest for 6 weeks. No need to f/u with MD service in period. Subjective Subjective Interval history: PPD 1 of viable female infant and POD 1 manual extraction of retained placenta under anesthesia and repair of cervical laceration. Patient comments: No complaints, Pain well controlled, Tolerating diet and Flatus present [place] baby status: Doing well, Nursing well, Rooming in and Strong Bonding Observed [place] feeding status: Exclusively breast feeding Exam Physical Exam Vital signs: Temp Pulse Resp BP Pulse Ox 97.9 F 72 16 119/64 99 12/11/21 10:55 12/11/21 10:55 12/11/21 10:55 12/11/21 10:55 12/10/21 13:06 Vital Signs Reviewed: Yes Constitutional Constitutional: no acute distress Respiratory Exam Respiratory Exam: Normal Abdominal Exam Abdomen: Other (FF@ 1 finger below umbilicus.) Fundal Exam Fundus: Below Umbilicus Rectal Exam Rectal Exam: Not Done Comments: pelvic exam deferred. Extremities Exam Extremity Exam: Normal Skin Exam Skin Exam: Normal Neurological Exam Neurological Exam: Normal Psychiatric Exam Psychiatric Exam: Normal Results Hemoglobin/Hematocrit: Hgb 13.0 g/dL (11.2-15.7) 12/10/21 07:05 Hct 40.2 % (36.0-46.0) 12/10/21 07:05 Abnormal Lab Findings: Abnormal Labs 12/09/21 12/09/21 12/10/21 14:15 15:40 07:05 WBC 15.78 H 13.39 H SARS-CoV-2 (PCR) POSITIVE A*
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
== END 2021-12-11 11:30 | disposition home or self-care (01) | DRG 805 ==
LOC: OBS 13:24
PROVIDERS: Advanced Practice Midwife; Obstetrics & Gynecology Gynecology; Admitting Provider Advanced Practice Midwife; PCP Nurse Practitioner Adult Health; Visit Provider Advanced Practice Midwife
PROC: 10D17Z9 Manual Extraction of Products of Conception, Retained, Via Natural or Artificial Opening (ICD-10-PCS; CPT 59414; principal; 2021-12-09 17:40)
DX: O63.0 Prolonged first stage (of labor) (principal); U07.1 COVID-19; Z37.0 Single live birth; O71.3 Obstetric laceration of cervix; O98.52 Other viral diseases complicating childbirth; O36.0930 Maternal care for other rhesus isoimmunization, third trimester, not applicable or unspecified; O99.324 Drug use complicating childbirth; O69.81X0 Labor and delivery complicated by cord around neck, without compression, not applicable or unspecified; O70.0 First degree perineal laceration during delivery; O73.1 Retained portions of placenta and membranes, without hemorrhage; Z3A.40 40 weeks gestation of pregnancy; F31.9 Bipolar disorder, unspecified; Z87.820 Personal history of traumatic brain injury; O99.344 Other mental disorders complicating childbirth; O99.334 Smoking (tobacco) complicating childbirth; F17.210 Nicotine dependence, cigarettes, uncomplicated; F12.90 Cannabis use, unspecified, uncomplicated; O99.52 Diseases of the respiratory system complicating childbirth; J45.909 Unspecified asthma, uncomplicated
CPT/HCPCS: 59414; 36415; 85027; 86850; 86900; 86901; 87635; 59025; 88307; J0690; J2001; J2250; J2405; J2704; J3010

== ENCOUNTER 2022-01-31 14:39 | Outpatient (REF) | payer MEDICARE, MEDICAID, SELFPAY ==
--- NOTE | 2022-01-31 11:30 | PAPFT_PTH ---
PATIENT: Jenni Wick LOC: MAX U#:[id number] AGE/SX: 31/F ROOM: RE01/31/[address]: Agatha Castanon CNM : 1990 BED: DIS: 01/31/2022 SPEC #: [id number] RECD: 01/31/22 17:08 STATUS: SERJIO REShanon #: [id number] JULIÁN: 01/31/22 11:[address]: Agatha Castanon DEPT: [facility] Cytology RECD BY: Navya Richardson ENTERED: 01/31/22 17:08 SP TYPE: PAPFT OTHR DR: Lachelle Ferrer Tissues: 1 - CX/ENDOCX FOR PAP SMEARS Procedures: PAP THIN PREP/[facility] Screening Comments: [id number]
== END 2022-01-31 14:40 | disposition home or self-care (01) ==
LOC: LBN 14:39
PROVIDERS: PCP Nurse Practitioner Adult Health; Visit Provider Advanced Practice Midwife
DX: Z12.4 Encounter for screening for malignant neoplasm of cervix (principal)
CPT/HCPCS: 88142